=== PATIENT | male | born 1955 | race Caucasian/White ===

== ENCOUNTER 2022-02-22 12:35 | Outpatient (CLI) | payer BC, SELFPAY | END 2022-02-22 12:36 | disposition home or self-care (01) | LOC: LAB 12:37 | PROVIDERS: PCP Physician Assistant; Visit Provider Orthopaedic Surgery Sports Medicine | DX: Z01.818 Encounter for other preprocedural examination (principal) | CPT/HCPCS: 36415; 86850; 86900; 86901 ==

== ENCOUNTER 2022-02-24 07:59 | Day surgery (SDC) | payer BC, SELFPAY ==
[2022-02-24] VITALS (46 sets, daily range): BP systolic 95–127; BP diastolic 55–85; PULSE 47–77; RESP 16; TEMP 35.8–36.9; O2SAT 54–100; BMI 39.1
[2022-02-24] MEDS: CELECOXIB 200 MG CAPSULE PO ×2 (08:30→21:57)
[2022-02-24] MEDS: OXYCODONE (CR) 10 MG TAB.ER.12H PO (08:30)
[2022-02-24] MEDS: ACETAMINOPHEN 500 MG TABLET 1000 MG PO ×3 (08:30→21:58)
[2022-02-24] MEDS: SODIUM CHLORIDE 0.9 % (FLUSH) 10 ML SYRINGE IVF (09:20)
[2022-02-24] MEDS: fentaNYL 100 MCG/2 ML inj IVP (09:22)
[2022-02-24] MEDS: MIDAZOLAM HCL 1 MG/ML inj IVP (09:22)
--- NOTE | 2022-02-24 09:32 | W.PM.NB ---
Nerve Block Nerve Block Time Seen by Provider: 09:31 Date Seen: 02/24/22 Type of block requested by surgeon for post-operative analgesia: BENEDICTO/LFCN Side: right Time out performed: Yes Verification of patient name: Yes Verification of date of : Yes Site marking: site marked Name of person performing procedure: Luis Continuous monitoring Was continuous monitoring of O2 sat, B/P, customer experience strategist, recorded every 15 minutes?: Yes Procedure Checklist: sterile prep, needles and gloves Ultrasound guided. Images saved: Yes Medications given in 5ml increments after negative aspiration: Ropivicaine %: 0.5 mL: 20 Needle gauge: 20 Decadron (mg): 10 Precedex (mcg): 25 Patient tolerated procedure well: Yes Additional comments: Needle noted adjacent to nerve
[2022-02-24] MEDS: LACTATED RINGERS 1000 ML 1,000 ML 100 ML IV (09:37)
--- NOTE | 2022-02-24 09:37 | SUR.PREOP ---
TIME?OUT:?20 PT/RN/MDA?VERIFICATION?OF?SURGICAL?SITE,?PROCEDURE,?AND?CONSENT OBTAINED?PRIOR?TO?INVASIVE?PROCEDURE.
--- NOTE | 2022-02-24 10:38 | CRLHL7_ITS ---
For Patients: As a result of the Cures Act, medical imaging exams and procedure reports are released immediately into your electronic medical record. You may view this report before your referring provider. If you have questions, please contact your health care provider. Indication: Hip replacement surgery Technique: AP hip fluoroscopic image. Fluoroscopy time 48.3 seconds. Findings/Impression: Hardware from a right total hip arthroplasty is in satisfactory position. Dictated by Shalom Pride MD @ 02/24/2022 1:17:27 PM (Electronically Signed)
--- NOTE | 2022-02-24 12:01 | CRLHL7_ITS ---
For Patients: As a result of the Cures Act, medical imaging exams and procedure reports are released immediately into your electronic medical record. You may view this report before your referring provider. If you have questions, please contact your health care provider. Indication: POST OP OVI Technique: AP pelvis and lateral view right hip. Findings/Impression: Hardware from a right total hip arthroplasty is in satisfactory position. Bone alignment is normal. No sign of acute fracture. Postop changes are within normal limits. Degenerative changes at the left hip. Dictated by Shalom Pride MD @ 02/24/2022 2:51:44 PM (Electronically Signed)
--- NOTE | 2022-02-24 13:49 | W.ANESCHARGE ---
Anesthesia Charges Start Date/Time Anesthesia Start Date: 02/24/22 Anesthesia Start Time: 11:04 Stop Date/Time Anesthesia Stop Date: 02/24/22 Anesthesia Stop Time: 13:42 Summary Extremes of Age: Over 72-CPT 10944
--- NOTE | 2022-02-24 14:29 | W.ANESCHARGE ---
Anesthesia Charges Start Date/Time Anesthesia Start Date: 02/24/22 Anesthesia Start Time: 11:04 Stop Date/Time Anesthesia Stop Date: 02/24/22 Anesthesia Stop Time: 13:42 Summary Emergency: No
[2022-02-24] MEDS: HYDROmorphone 0.5 mg/0.5 ml inj IVP (14:44)
[2022-02-24] MEDS: CEFAZOLIN 2 GM in 0.9 % SODIUM CHLORIDE Mini-bag 100 ML IVPB (17:51)
[2022-02-24] MEDS: LACTATED RINGERS 1000 ML 1,000 ML 75 ML IV (17:52)
--- NOTE | 2022-02-24 21:17 | PM.IMCN1 ---
Date of Consult Patient: Jamaal Patient ([place]) Consult date: 02/24/22 Requesting Physician: Orthopedics ([facility]) Primary Care Provider: Rhoda Hare PA-C Consult Narrative Reason for consult: Medical management of hypertension and hyperlipidemia Narrative: Kev Avelar is a 66 year old male who underwent an elective right total hip arthroplasty today for osteoarthritis. He is feeling well. He tells me the block is still working. He was able to use the bathroom with help. He has not yet had flatus. He normally has a BM every other day, but took some doculax last night and had 3 BMs afterward. He recalls both knee surgeries and postoperative recovery going very well. Review of Systems Status of ROS: Reports: 6 or more systems reviewed and unremarkable except as noted in History and below [facility] Medical History (Updated 02/24/22 @ 21:30 by Kyara Fallon MD) Colon polyps Erectile dysfunction Hyperlipidemia Hypertension Surgical History (Updated 02/24/22 @ 21:30 by Kyara Fallon MD) Carpal tunnel syndrome of left wrist H/O colonoscopy H/O colonoscopy with polypectomy S/P total right hip arthroplasty Status post total left knee replacement Status post total right knee replacement Family History (Updated 02/24/22 @ 21:23 by Kyara Fallon MD) Father Throat cancer Social History (Updated 02/24/22 @ 21:43 by Kyara Fallon MD) Narrative: Never smoker. 1 alcoholic drink every six months. 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 5 grandkids. Wishes to be a full code. Smoking Status: Never smoker Do you use any of these nicotine containing products: None How often do you have a drink containing alcohol: monthly or less Alcohol type details: 2 alcoholic drinks per year. How often do you have six or more drinks on one occasion: Never AUDIT-C Alcohol total score: 1 Non-prescribed substance use: denies use Caffeine: No Meds Home Medications and Allergies Home Medications Medication Instructions Recorded Confirmed Type atorvastatin 10 mg tablet (Lipitor) 10 mg PO HS 02/21/22 02/24/22 History celecoxib 200 mg capsule (Celebrex) 200 mg PO HS 02/21/22 02/24/22 History gabapentin 300 mg capsule 300 mg PO TID 02/21/22 02/24/22 History (Neurontin) losartan 50 mg tablet (Cozaar) 50 mg PO HS 02/21/22 02/24/22 History sildenafil 50 mg tablet (Viagra) 50 mg PO DAILY PRN 02/21/22 02/24/22 History Allergies Allergy/AdvReac Type Severity Reaction Status Date / Time No Known Allergies Allergy Verified 02/24/22 08:10 Exam Narrative: Exam Narrative: General: No acute distress. Awake alert oriented x3. Obese. Thick neck. HEENT: Normocephalic atraumatic, pupils equally round and reactive to light and accommodation. Oropharynx clear. Mucous membranes are moist. No cervical lymphadenopathy, thyromegaly or carotid bruits. No JVD. Cardiovascular: Regular rate and rhythm. No murmurs, gallops, or rubs. Chest: No increased work of breathing. Clear to auscultation bilaterally. No crackles or wheezes. Abdomen: Bowel sounds present. Soft, nondistended, nontender. No hepatosplenomegaly or masses. Extremities: Right hip anterior bandage is clean, dry, and intact. No edema, no cyanosis or clubbing. Skin: No jaundice, no pallor, no rashes. Const: Vital Signs, click to edit/add: Vital Signs - 24 hr 02/24/22 08:18 02/24/22 09:22 02/24/22 09:30 Temperature 97.9 F Pulse Rate 57 L 59 L 59 L Pulse Rate [Left P ulse Oximeter] Respiratory Rate 16 16 16 Blood Pressure 127/76 113/76 113/79 Blood Pressure [Ri ght Arm] Pulse Oximetry 98 54 L 99 02/24/22 09:40 02/24/22 10:00 02/24/22 10:43 Temperature Pulse Rate 56 L 52 L 47 L Pulse Rate [Left P ulse Oximeter] Respiratory Rate 16 16 Blood Pressure 98/70 95/65 Blood Pressure [Ri ght Arm] Pulse Oximetry 99 99 100 02/24/22 10:50 02/24/22 10:51 02/24/22 11:18 Temperature Pulse Rate 47 L 48 L 77 Pulse Rate [Left P ulse Oximeter] Respiratory Rate Blood Pressure 98/60 Blood Pressure [Ri ght Arm] Pulse Oximetry 100 99 02/24/22 13:41 02/24/22 13:42 02/24/22 13:44 Temperature Pulse Rate 67 64 64 Pulse Rate [Left P ulse Oximeter] Respiratory Rate Blood Pressure 120/85 Blood Pressure [Ri ght Arm] Pulse Oximetry 97 96 92 02/24/22 13:45 02/24/22 13:46 02/24/22 13:48 Temperature 97.0 F L Pulse Rate 61 60 57 L Pulse Rate [Left P ulse Oximeter] Respiratory Rate Blood Pressure 114/70 Blood Pressure [Ri ght Arm] Pulse Oximetry 95 95 88 02/24/22 13:49 02/24/22 13:50 02/24/22 13:51 Temperature Pulse Rate 57 L 53 L 51 L Pulse Rate [Left P ulse Oximeter] Respiratory Rate Blood Pressure 113/60 Blood Pressure [Ri ght Arm] Pulse Oximetry 94 97 98 02/24/22 13:52 02/24/22 13:55 02/24/22 13:56 Temperature Pulse Rate 51 L 54 L 56 L Pulse Rate [Left P ulse Oximeter] Respiratory Rate Blood Pressure 104/75 Blood Pressure [Ri ght Arm] Pulse Oximetry 99 97 98 02/24/22 13:57 02/24/22 14:02 02/24/22 14:05 Temperature 97.0 F L Pulse Rate 52 L 52 L Pulse Rate [Left P ulse Oximeter] Respiratory Rate 16 Blood Pressure 111/70 104/75 Blood Pressure [Ri ght Arm] Pulse Oximetry 98 98 02/24/22 14:06 02/24/22 14:07 02/24/22 14:09 Temperature Pulse Rate 54 L 55 L Pulse Rate [Left P ulse Oximeter] Respiratory Rate Blood Pressure 113/71 Blood Pressure [Ri ght Arm] Pulse Oximetry 99 99 02/24/22 14:10 02/24/22 14:12 02/24/22 14:13 Temperature Pulse Rate 52 L 53 L 55 L Pulse Rate [Left P ulse Oximeter] Respiratory Rate Blood Pressure 122/65 Blood Pressure [Ri ght Arm] Pulse Oximetry 99 98 94 02/24/22 14:14 02/24/22 14:15 02/24/22 14:30 Temperature 96.5 F L Pulse Rate 54 L 51 L 56 L Pulse Rate [Left P ulse Oximeter] Respiratory Rate 16 Blood Pressure Blood Pressure [Ri ght Arm] 108/72 Pulse Oximetry 98 95 02/24/22 14:45 02/24/22 15:00 02/24/22 15:15 Temperature 96.5 F L 98 F 98 F Pulse Rate Pulse Rate [Left P ulse Oximeter] 54 L 50 L 49 L Respiratory Rate 16 16 16 Blood Pressure Blood Pressure [Ri ght Arm] 119/73 110/68 108/64 Pulse Oximetry 95 98 97 02/24/22 15:30 02/24/22 16:00 02/24/22 16:30 Temperature 98 F 98 F 98.4 F Pulse Rate Pulse Rate [Left P ulse Oximeter] 49 L 54 L 52 L Respiratory Rate 16 16 16 Blood Pressure Blood Pressure [Ri ght Arm] 100/64 114/66 110/72 Pulse Oximetry 95 96 96 02/24/22 17:30 02/24/22 17:49 02/24/22 18:30 Temperature 98 F 98 F 98 F Pulse Rate Pulse Rate [Left P ulse Oximeter] 60 63 Respiratory Rate 16 16 Blood Pressure Blood Pressure [Ri ght Arm] 121/63 115/55 L Pulse Oximetry 97 98 02/24/22 19:05 02/24/22 19:30 02/24/22 20:25 Temperature 98 F 98 F 98 F Pulse Rate Pulse Rate [Left P ulse Oximeter] 63 65 Respiratory Rate 16 16 Blood Pressure Blood Pressure [Ri ght Arm] 113/67 118/68 Pulse Oximetry 97 98 Assessment and Plan Assessment and plan (1) S/P total right hip arthroplasty: Status: Acute Assessment and Plan: Doing well. Pain well controlled. Cares per Ortho. (2) Hypertension: Status: Chronic Assessment and Plan: Hold losartan overnight. (3) Hyperlipidemia: Status: Chronic Assessment and Plan: Continue atorvastatin. Plan At risk for sleep apnea based on body habitus. He does not recall any issues with his 2 knee surgeries. Monitor for nocturnal hypoxia.
[2022-02-24] MEDS: OXYCODONE 5 MG TABLET PO (21:58)
--- NOTE | 2022-02-24 22:58 | PC.NURSE ---
Patient is up to the Bathroom with assist of 1, walker and gait belt. Voided dark lissette urine. Tolerating a regular diet without any nausea. Rating pain at a 1-3/10 in right hip. Oxycodone given x1 with relief.
[2022-02-25 00:30] VITALS: BP 121/70; PULSE 68; RESP 16; TEMP 36.8; O2SAT 95
[2022-02-25] MEDS: CEFAZOLIN 2 GM in 0.9 % SODIUM CHLORIDE Mini-bag 100 ML IVPB ×2 (00:32→08:31)
[2022-02-25] MEDS: OXYCODONE 5 MG TABLET PO ×3 (00:32→08:31)
[2022-02-25 04:00] VITALS: BP 110/68; PULSE 64; RESP 16; TEMP 36.8; O2SAT 96
[2022-02-25] MEDS: ACETAMINOPHEN 500 MG TABLET 1000 MG PO ×2 (04:00→09:38)
--- NOTE | 2022-02-25 05:38 | PC.NURSE ---
SHIFT NOTE -: Pt pleasant and cooperative, A&O. Afebrile. O2 saturation >90% on RA. Pain rated 1-2/10 at rest, PRN Oxycodone and scheduled Tylenol given with relief. Surgical dressing C/D/I, CMS intact, active ice on continuously. Denies N/V, SOB, and CP. Up 1 assist with gait belt and walker and tolerates well.
[2022-02-25 07:14] VITALS: BP 115/60; PULSE 65; RESP 16; TEMP 36.7; O2SAT 97
[2022-02-25 07:25] LABS: Hematocrit 37.5 % (37.0-53.0); Hemoglobin* 12.7 gm/dL (13.5-17.5); Mean Corpuscular HGB Conc 34 gm/dL (32-36); Mean Corpuscular Hemoglobin 30 pg (26-34); Mean Corpuscular Volume 89 fL (80-100); Platelet Count* 217 K/uL (140-440); Red Blood Count 4.23 m/uL (4.30-5.90); White Blood Count* 16.35 K/uL (4.50-11.00)
[2022-02-25 07:30] LABS: Slide Review Reflex No
[2022-02-25] MEDS: CELECOXIB 200 MG CAPSULE PO (08:30)
[2022-02-25] MEDS: RIVAROXABAN 10 MG TABLET PO (08:30)
[2022-02-25] MEDS: SENNOSIDES 1 TAB TABLET 2 TAB PO (08:31)
[2022-02-25] MEDS: GABAPENTIN 300 MG CAPSULE PO (08:31)
--- NOTE | 2022-02-25 10:21 | P.DS_ITS ---
DS: Providers Provider Time Seen by Provider: 08:00 Date Seen: 02/25/22 Primary care physician: Rhoda Hare PA-C Consults: 02/24/22 13:47 Consult to Physician [CONS] Routine Comment: Consulting Provider: Eh Nieves Has provider been notified: Yes 02/24/22 13:47 Consult to Occupational Therapy [CONS] Routine Comment: Reason(s) for OT Consult:: Evaluate and Treat Any Restrictions?:: No Restrictions Consult to Physical Therapy [CONS] Routine Comment: Ambulate in the [place] today Reason(s) for PT Consult:: Evaluate and Treat Any Restrictions?:: No Restrictions Comment: Nursing Activity Consult to Airborne Operations Superintendent [CONS] Routine Comment: Reason for Consult:: Discharge Planning Needs Attending Physician on discharge: Ede Romero MD Date of Discharge: 02/25/22 DS: Diagnosis Discharge Diagnosis (1) S/P total right hip arthroplasty: Status: Acute Problem details: No complications (2) Hypertension: Status: Chronic Problem details: well controlled. Resume blood pressure medication on discharge DS: Summary Hospital Course Hospital Course: 66-year-old male status post right total hip arthroplasty day 1 doing well. He had no operative complications. He is having no significant pain problems. He is otherwise feeling well. Time Spent with Patient Time attestation: Total time spent providing and/or coordinating discharge services: Time spent: Less than 30 minutes Exam Const: Vital Signs, click to edit/add: Vital Signs - 24 hr 02/24/22 10:43 02/24/22 10:50 02/24/22 10:51 Temperature Pulse Rate 47 L 47 L 48 L Pulse Rate [Left P ulse Oximeter] Respiratory Rate Blood Pressure 98/60 Blood Pressure [Ri ght Arm] Pulse Oximetry 100 100 99 02/24/22 11:18 02/24/22 13:41 02/24/22 13:42 Temperature Pulse Rate 77 67 64 Pulse Rate [Left P ulse Oximeter] Respiratory Rate Blood Pressure 120/85 Blood Pressure [Ri ght Arm] Pulse Oximetry 97 96 02/24/22 13:44 02/24/22 13:45 02/24/22 13:46 Temperature 97.0 F L Pulse Rate 64 61 60 Pulse Rate [Left P ulse Oximeter] Respiratory Rate Blood Pressure Blood Pressure [Ri ght Arm] Pulse Oximetry 92 95 95 02/24/22 13:48 02/24/22 13:49 02/24/22 13:50 Temperature Pulse Rate 57 L 57 L 53 L Pulse Rate [Left P ulse Oximeter] Respiratory Rate Blood Pressure 114/70 Blood Pressure [Ri ght Arm] Pulse Oximetry 88 94 97 02/24/22 13:51 02/24/22 13:52 02/24/22 13:55 Temperature Pulse Rate 51 L 51 L 54 L Pulse Rate [Left P ulse Oximeter] Respiratory Rate Blood Pressure 113/60 Blood Pressure [Ri ght Arm] Pulse Oximetry 98 99 97 02/24/22 13:56 02/24/22 13:57 02/24/22 14:02 Temperature Pulse Rate 56 L 52 L Pulse Rate [Left P ulse Oximeter] Respiratory Rate Blood Pressure 104/75 111/70 Blood Pressure [Ri ght Arm] Pulse Oximetry 98 98 02/24/22 14:05 02/24/22 14:06 02/24/22 14:07 Temperature 97.0 F L Pulse Rate 52 L 54 L Pulse Rate [Left P ulse Oximeter] Respiratory Rate 16 Blood Pressure 104/75 113/71 Blood Pressure [Ri ght Arm] Pulse Oximetry 98 99 02/24/22 14:09 02/24/22 14:10 02/24/22 14:12 Temperature Pulse Rate 55 L 52 L 53 L Pulse Rate [Left P ulse Oximeter] Respiratory Rate Blood Pressure 122/65 Blood Pressure [Ri ght Arm] Pulse Oximetry 99 99 98 02/24/22 14:13 02/24/22 14:14 02/24/22 14:15 Temperature Pulse Rate 55 L 54 L 51 L Pulse Rate [Left P ulse Oximeter] Respiratory Rate Blood Pressure Blood Pressure [Ri ght Arm] Pulse Oximetry 94 98 95 02/24/22 14:30 02/24/22 14:45 02/24/22 15:00 Temperature 96.5 F L 96.5 F L 98 F Pulse Rate 56 L Pulse Rate [Left P ulse Oximeter] 54 L 50 L Respiratory Rate 16 16 16 Blood Pressure Blood Pressure [Ri ght Arm] 108/72 119/73 110/68 Pulse Oximetry 95 98 02/24/22 15:15 02/24/22 15:30 02/24/22 16:00 Temperature 98 F 98 F 98 F Pulse Rate Pulse Rate [Left P ulse Oximeter] 49 L 49 L 54 L Respiratory Rate 16 16 16 Blood Pressure Blood Pressure [Ri ght Arm] 108/64 100/64 114/66 Pulse Oximetry 97 95 96 02/24/22 16:30 02/24/22 17:30 02/24/22 17:49 Temperature 98.4 F 98 F 98 F Pulse Rate Pulse Rate [Left P ulse Oximeter] 52 L 60 Respiratory Rate 16 16 Blood Pressure Blood Pressure [Ri ght Arm] 110/72 121/63 Pulse Oximetry 96 97 02/24/22 18:30 02/24/22 19:05 02/24/22 19:30 Temperature 98 F 98 F 98 F Pulse Rate Pulse Rate [Left P ulse Oximeter] 63 63 Respiratory Rate 16 16 Blood Pressure Blood Pressure [Ri ght Arm] 115/55 L 113/67 Pulse Oximetry 98 97 02/24/22 20:25 02/24/22 21:58 02/25/22 00:30 Temperature 98 F 98.2 F 98.2 F Pulse Rate Pulse Rate [Left P ulse Oximeter] 65 68 Respiratory Rate 16 16 Blood Pressure Blood Pressure [Ri ght Arm] 118/68 121/70 Pulse Oximetry 98 95 02/25/22 04:00 02/25/22 07:14 Temperature 98.3 F 98.1 F Pulse Rate Pulse Rate [Left P ulse Oximeter] 64 65 Respiratory Rate 16 16 Blood Pressure Blood Pressure [Ri ght Arm] 110/68 115/60 Pulse Oximetry 96 97 DS: Data Data Completed and Pending Labs on day of discharge: Labs from last 24 hours 02/25/22 06:35 WBC 16.35 H RBC 4.23 L Hgb 12.7 L Hct 37.5 MCV 89 MCH 30 MCHC 34 Plt Count 217 Discharge Plan Discharge Disposition: Home, Self-Care Discharging Surgeon: Ede Romero Follow-Up Appointment: per Ortho Prescriptions: New rivaroxaban 10 mg tablet 10 mg PO DAILY Qty: 4 0RF Rx Instructions: Medication for deep vein clot prevention post surgery. Complete this medication before starting Aspirin. aspirin 81 mg capsule 81 mg PO BID Qty: 50 0RF Rx Instructions: For deep vein clot prevention post surgery. Start this medication after completing Rivaroxaban. Take twice daily. sennosides-docusate sodium [Senna-S] 8.6-50 mg tablet 1 - 4 tab-cap PO BID Qty: 60 0RF Rx Instructions: hold medication if experiencing loose stools. oxycodone 5 mg tablet 2.5 - 10 mg PO Q4-6H MDD 6 PRN (Reason: pain) Qty: 42 0RF Rx Instructions: Take as needed for postop pain: 2.5 mg mild pain, 5 mg moderate, 10 mg severe (DME) Walker- 2 Wheels Misc See Rx Instructions .Route Qty: 1 0RF Rx Instructions: As directed Continued atorvastatin [Lipitor] 10 mg tablet 10 mg PO HS 0RF gabapentin [Neurontin] 300 mg capsule 300 mg PO TID 0RF losartan [Cozaar] 50 mg tablet 50 mg PO HS 0RF sildenafil [Viagra] 50 mg tablet 50 mg PO DAILY PRN0RF Rx Instructions: administer 30 minutes to 4 hours before activity Held celecoxib [Celebrex] 200 mg capsule 200 mg PO HS 0RF Activity Level: Activity as Tolerated, Weight Bearing as Tolerated, Use Cane and Use Walker Discharge Diet: Low Fat/Low Cholesterol Patient Instructions: Surgical Site Infections (DC) Follow-up: Rhoda Hare PA-C [Primary Care Provider] - Discharge Orders: Discharge Order (Routine); Ordered 02/25/22 Ordered By: Eh Nieves
--- NOTE | 2022-02-25 13:16 | PC.NURSE ---
Discharge: Patients vitals stable and WNL. IV removed, discharge instructions given, medications ad follow ups reviewed, questions answered as needed. Dressing dry and intact, pain rated 1-2/10, managed with PRN medication and ice. Tolerating regular diet. Patient discharged @ 1145 via wheelchair, picked up from main entrance, discharged to home.
--- NOTE | 2022-02-25 17:05 | PM.ORPN ---
Subjective Subjective Date Seen: 02/25/22 Principal diagnosis: Status postop day 1 right total hip arthroplasty - anterior approach Interval history: Patient reports doing well. No acute events over night. Pain managed with scheduled /PRN medications and ice. DVT prophylaxis rivaroxaban, bilateral knee high Reuben stockings, and SCDs. Denies fevers, chills, aches, N/V, CP, SOB/ACE, tachycardia, or lightheadedness. Ortho Exam Narrative Exam Narrative: -Patient appears comfortable in recliner; no apparent acute distress -Alert and oriented times 3 -Operative hip mildly swollen; soft tissues supple; no obvious erythema. Ecchymosis minimal. Warmth appropriate -Surgical dressing clean, dry, intact; no obvious drainage, no erythematous streaking peripheral to the bandage -Bilateral calves soft and supple; no significant swelling, edema, tenderness, erythema, discoloration, warmth, or palpable cords -2+ DP/PT pulses, intact dermatomes and myotomes distally (5/5 strength). No numbness about the lateral femoral cutaneous nerve distribution. Const Vital Signs, click to edit/add: Vital Signs - 24 hr 02/24/22 17:30 02/24/22 17:49 02/24/22 18:30 Temperature 98 F 98 F 98 F Pulse Rate [Left Pulse Oximeter] 60 63 Respiratory Rate 16 16 Blood Pressure [Right Arm] 121/63 115/55 L Pulse Oximetry 97 98 02/24/22 19:05 02/24/22 19:30 02/24/22 20:25 Temperature 98 F 98 F 98 F Pulse Rate [Left Pulse Oximeter] 63 65 Respiratory Rate 16 16 Blood Pressure [Right Arm] 113/67 118/68 Pulse Oximetry 97 98 02/24/22 21:58 02/25/22 00:30 02/25/22 04:00 Temperature 98.2 F 98.2 F 98.3 F Pulse Rate [Left Pulse Oximeter] 68 64 Respiratory Rate 16 16 Blood Pressure [Right Arm] 121/70 110/68 Pulse Oximetry 95 96 02/25/22 07:14 Temperature 98.1 F Pulse Rate [Left Pulse Oximeter] 65 Respiratory Rate 16 Blood Pressure [Right Arm] 115/60 Pulse Oximetry 97 Assessment and Plan Assessment and plan (1) S/P total right hip arthroplasty: Problem details: No complications Status: Acute (2) Hypertension: Problem details: well controlled. Resume blood pressure medication on discharge Status: Chronic (3) Acute postoperative anemia due to expected blood loss: Status: Acute Assessment and Plan: Hgb 12.7, asymptomatic (pt denies CP, SOB/ACE, tachycardia, tachypnea, lightheadedness or dizziness). Plan - Complete 23 hour perioperative antibiotics. - PT/OT consult for education and assistance. - Social work consult for discharge planning - Prescribed analgesics as needed - DVT prophylaxis: Rivaroxaban, bilateral knee high Reuben Hose stockings and SCDs - Anticipation is for discharge to home with spouse if the patient remains medically stable, pain is controlled, and they are safe with mobilization.
--- NOTE | 2022-02-25 17:08 | PM.DS1 ---
DS: Providers Provider Date Seen: 02/25/22 Date of admission: Med/Surg recovery 02/24/2022 Primary care physician: Rhoda Hare PA-C Consults: 02/24/22 13:47 Consult to Physician [CONS] Routine Comment: Consulting Provider: Eh Nieves Has provider been notified: Yes 02/24/22 13:47 Consult to Occupational Therapy [CONS] Routine Comment: Reason(s) for OT Consult:: Evaluate and Treat Any Restrictions?:: No Restrictions Consult to Physical Therapy [CONS] Routine Comment: Ambulate in the [place] today Reason(s) for PT Consult:: Evaluate and Treat Any Restrictions?:: No Restrictions Comment: Nursing Activity Consult to J2Ee Application Developer [CONS] Routine Comment: Reason for Consult:: Discharge Planning Needs Attending Physician on discharge: Ede Romero MD Date of Discharge: 02/25/22 DS: Diagnosis Discharge Diagnosis (1) S/P total right hip arthroplasty: Status: Acute Problem details: No complications (2) Hypertension: Status: Chronic Problem details: well controlled. Resume blood pressure medication on discharge (3) Acute postoperative anemia due to expected blood loss: Status: Acute Problem details: No complications; asymptomatic DS: Summary Hospital Course Hospital Course: 66-year-old male status post right total hip arthroplasty day 1 doing well. He had no operative complications. He is having no significant pain problems. He is otherwise feeling well. Status at Discharge Functional status at discharge: uses cane/walker Overall status at discharge: patient is progressing back to baseline Time Spent with Patient Time attestation: Total time spent providing and/or coordinating discharge services: Time spent: Less than 30 minutes Exam Const: Vital Signs, click to edit/add: Vital Signs - 24 hr 02/24/22 17:30 02/24/22 17:49 02/24/22 18:30 Temperature 98 F 98 F 98 F Pulse Rate [Left P ulse Oximeter] 60 63 Respiratory Rate 16 16 Blood Pressure [Ri ght Arm] 121/63 115/55 L Pulse Oximetry 97 98 02/24/22 19:05 02/24/22 19:30 02/24/22 20:25 Temperature 98 F 98 F 98 F Pulse Rate [Left P ulse Oximeter] 63 65 Respiratory Rate 16 16 Blood Pressure [Ri ght Arm] 113/67 118/68 Pulse Oximetry 97 98 02/24/22 21:58 02/25/22 00:30 02/25/22 04:00 Temperature 98.2 F 98.2 F 98.3 F Pulse Rate [Left P ulse Oximeter] 68 64 Respiratory Rate 16 16 Blood Pressure [Ri ght Arm] 121/70 110/68 Pulse Oximetry 95 96 02/25/22 07:14 Temperature 98.1 F Pulse Rate [Left P ulse Oximeter] 65 Respiratory Rate 16 Blood Pressure [Ri ght Arm] 115/60 Pulse Oximetry 97 DS: Data Data Completed and Pending Labs on day of discharge: Labs from last 24 hours 02/25/22 06:35 WBC 16.35 H RBC 4.23 L Hgb 12.7 L Hct 37.5 MCV 89 MCH 30 MCHC 34 Plt Count 217 Discharge Plan Discharge Disposition: Home, Self-Care Discharging Surgeon: Ede Romero Follow-Up Appointment: per Ortho Prescriptions: New rivaroxaban 10 mg tablet 10 mg PO DAILY Qty: 4 0RF Rx Instructions: Medication for deep vein clot prevention post surgery. Complete this medication before starting Aspirin. aspirin 81 mg capsule 81 mg PO BID Qty: 50 0RF Rx Instructions: For deep vein clot prevention post surgery. Start this medication after completing Rivaroxaban. Take twice daily. sennosides-docusate sodium [Senna-S] 8.6-50 mg tablet 1 - 4 tab-cap PO BID Qty: 60 0RF Rx Instructions: hold medication if experiencing loose stools. oxycodone 5 mg tablet 2.5 - 10 mg PO Q4-6H MDD 6 PRN (Reason: pain) Qty: 42 0RF Rx Instructions: Take as needed for postop pain: 2.5 mg mild pain, 5 mg moderate, 10 mg severe (DME) Walker- 2 Wheels Misc See Rx Instructions .Route Qty: 1 0RF Rx Instructions: As directed Continued atorvastatin [Lipitor] 10 mg tablet 10 mg PO HS 0RF gabapentin [Neurontin] 300 mg capsule 300 mg PO TID 0RF losartan [Cozaar] 50 mg tablet 50 mg PO HS 0RF sildenafil [Viagra] 50 mg tablet 50 mg PO DAILY PRN0RF Rx Instructions: administer 30 minutes to 4 hours before activity Held celecoxib [Celebrex] 200 mg capsule 200 mg PO HS 0RF Activity Level: Activity as Tolerated, Weight Bearing as Tolerated, Use Cane and Use Walker Discharge Diet: Low Fat/Low Cholesterol Patient Instructions: Aspirin (By mouth), Laxative, Stimulant (By mouth), Oxycodone, Rapid Release (By mouth), Rivaroxaban (By mouth), Surgical Site Infections (DC), Anterior Hip Replacement (DC) Follow-up: Ede Romero MD [Staff Physician] - 03/06/22 8:30 am (Appointment with Jesus. Schedule surgeon appointment at this visit.) Rhoda Hare PA-C [Primary Care Provider] - (Patient is to call and schedule as needed.) Discharge Orders: Discharge Order (Routine); Ordered 02/25/22 Ordered By: Eh Nieves
--- NOTE | 2022-03-03 10:25 | P.ORPRC_ITS ---
Procedure Note Date of procedure: 03/03/22 Procedure: PREOPERATIVE DIAGNOSIS: 1. Right hip osteoarthritis, severe, primary POSTOPERATIVE DIAGNOSIS: 1. Right hip osteoarthritis, severe, primary PROCEDURE: 1. Right total hip arthroplasty-anterior approach 2. 81543 - intraoperative fluoroscopy up to 1 hour. SURGEON: Ede Romero MD. OBSERVATION ASSISTANT: Jesus Escobar PA-C; ATIYA Hughes - Of note, a skilled graduate assistant athletic trainer was critical for this case to aid in patient positioning, tissue retraction, limb manipulation/positioning, and closure. ANESTHESIA: General endotracheal anesthetic EBL: 300 mL IMPLANTS: DePuy J&J uncemented total hip Critz cup size 56, hole eliminator, +4 neutral liner Actis stem, high offset, size 5 +1.5 mm ceramic 36mm head COMPLICATIONS: None evident INDICATIONS: The patient is a pleasant 66-year-old male who has experienced severe right hip pain and difficulty bearing weight. Workup included x-rays which revealed severe osteoarthrosis in the hip. Given the deformity, the dysfunction, and the pain, as well as the failure of nonoperative management, recommendation was made for surgery. FINDINGS: Moderate effusion upon entering joint. Full-thickness chondral loss superior femoral head and broadly to the acetabulum. Perimeter osteophytes around the acetabulum and femoral head/neck junction. DESCRIPTION OF PROCEDURE: Following a thorough discussion of risks, benefits, and alternatives consent was obtained and the right hip was marked. The patient was brought to the operating room and placed supine on the operating table. Induction of anesthesia was undertaken. 2 g IV Ancef and 1 g tranexamic acid was administered within 1 hr of incision preoperatively. Proper time-out was performed identifying proper patient, site, procedure. The operative extremity was prepped and draped in the appropriate sterile fashion using ChloraPrep after the patient was positioned on the [place] table with head in neutral alignment and all bony prominences well padded. C-arm fluoroscopic imaging was utilized to confirm proper pelvis rotation and position, and to get true AP films of both the contralateral left, and the affected right hip. This is for comparison. A longitudinal incision was made starting approximately 1 cm distal to the ASIS, and 3-4 cm lateral. The incision was extended distally aiming toward the lateral border the patella. Sharp incision through skin and bovie cautery through the subcutaneous tissue allowed identification of the TFL fascia. This was sharply divided, and the fascia bluntly released from the muscle fibers as we dissected medial. Upon coming to the medial border, we were able to retract the TFL laterally, and penetrated the deeper fascia and identify the crossing circumflex vessels. These were ligated/cauterized. The rectus was elevated from the capsule, and retractors placed laterally and medially along the femoral neck to help with visualization of the capsule. We then performed an inverted T capsulotomy. The capsule was tagged for later repair. Retractors were placed inside the capsule. The femoral neck was visualized after releasing medially down to the lesser trochanter, along the saddle laterally, and up onto the acetabulum. The femoral neck cut was made in line with our preoperative templating. The head was removed in a single piece, and sized. We turned our attention to acetabular preparation. Initially, the labrum was resected from around the perimeter, the pulvinar was excised, allowing us to visualize the false wall. We started the reaming with a 43 mm reamer. This was medialized down to the true wall. We then enlarged our reamers sequentially up to one size less than the selected cup size. We trialed at the same size and found it to have an excellent fit. The selected cup was then opened, inserted, and impacted in line with the goal of 40? of abduction, and 20-25? of anteversion. This was confirmed on C-arm fluoroscopic imaging to be in the appropriate/goal position. Once the cup was placed we placed a hole eliminator and a liner consistent with preop planning. Attention was turned to the femoral preparation. The limb was extended, externally rotated, and adducted. The posteromedial capsule was released, as retractors were placed allowing excellent access to the proximal femur. Initially a boxing instructor was followed by canal finder followed by various broaches. We broached sequentially up to the size noted above, found it to have excellent rotational control, and trialing various heads and necks, revealed that appropriate neck offset, and the above noted head size provided the greatest stability, and orthodoxy of length, and offset. C-arm fluoroscopic imaging confirmed position of the stem, as well as leg lengths, which were compared with the pre procedure all fluoroscopic images. Trial implants were removed, the real femoral stem inserted, as was the appropriate head. After reducing, the leg was placed through range of motion and stability was confirmed anterior, posterior, and lateral. A 3 min Betadine soak was then performed, and thorough irrigation with normal saline followed. Closure of the capsule was performed with #1 PDS. Bleeding was confirmed to be controlled at this stage, and the TFL fascia was closed with #0 strata fix. Subcutaneous, and subcuticular closure was performed with 2-0 Vicryl and 4-0 Monocryl, respectively. Dressings were applied, and the patient was awoken from anesthesia and transferred the PACU in stable condition. A skilled graduate assistant athletic trainer was critical for this case to aid in patient positioning, tissue retraction, acetabular and proximal femoral exposure, limb manipulation/positioning, dislocation/relocation, patient safety, and closure. PLAN: 1. Weight bear as tolerated operative extremity. 2. 23 hr perioperative antibiotics. 3. Ice. 4. PT/OT consults for ambulation assistance/mobility education. 5. Social work consult for discharge planning. 6. DVT prophylaxis with at SCDs, Reuben Hose, and Xarelto x5 days followed by aspirin for a total of 1 month..
== END 2022-02-25 12:45 | disposition home or self-care (01) ==
LOC: OR 07:59 → MEDSURG 21:17
PROVIDERS: PCP Physician Assistant; Visit Provider Orthopaedic Surgery Sports Medicine
PROC: (CPT 27130; principal; 2022-02-24 10:30)
DX: M16.11 Unilateral primary osteoarthritis, right hip (principal); D62 Acute posthemorrhagic anemia; I10 Essential (primary) hypertension; E78.5 Hyperlipidemia, unspecified
CPT/HCPCS: 27130; 01214; 36415; 64450; 73501; 76000; 76942; 85027; 97110; 97116; 97161; 97165; 99100; A9270; C1776; J0330; J0690; J1100; J1170; J2250; J2370; J2405; J2704; J2795; J3010; J7120

== ENCOUNTER 2024-06-13 14:17 | Outpatient (CLI) | payer BC, SELFPAY ==
--- NOTE | 2024-06-13 14:30 | MR_ITS ---
[address] [address] Phone:?[phone] Fax:?[phone] Referring Physician Information: dEe Romero M.D. [id number] [facility] [address] Phone:?[phone] Fax:?[phone] Patient:Tan Avelar D.O.B:?1955 Sex:?Male Phone:?[phone] [facility] MRN:?[id number] Exam Date:?06/13/2024 EXAM: MRI of the LEFT SHOULDER, without contrast CLINICAL INFORMATION: Male, 68 years old, with left shoulder pain, possible rotator cuff tear INDICATION: Evaluate for rotator cuff tear PRIOR SURGERY: None reported. PLAIN FILMS: Radiographs 06/07/2024 COMPARISONS: No prior MRIs available. TECHNICAL INFORMATION: Using a 1.5T MR scanner and a localizing surface coil: Coronals: PD, T2FS Sagittals: PDFS, T2 Axials: PD, PDFS SEDATION: None CONTRAST: None FINDINGS: Bones: Proximal humerus: No fracture or marrow edema/pathology. No humeral Hill-Sachs or reverse Hill-Sachs lesion/impaction or contusion. Glenoid: No fracture or marrow edema/pathology. No osseous Bankart lesion. Rotator cuff and muscles/tendons: Supraspinatus: Moderate supraspinatus tendinosis with interstitial delamination. Tiny region of interstitial splitting is seen at the insertional footprint measuring 5 mm (coronal series 5 image 16). Infraspinatus: Mild to moderate infraspinatus tendinosis with tiny region of interstitial splitting at the insertional footprint anteriorly measuring 5 mm (coronal series 5 image 13). Teres minor: No tendinopathy, tear or atrophy. Subscapularis: Moderate subscapularis tendinosis with low-grade undersurface and interstitial tearing of the superior distal tendon, without high-grade or full- thickness tendon tearing. Deltoid: No strain or atrophy. Coracoacromial arch: Acromion morphology: The acromion has type II morphology. No discrete subacromial osseous spur or os acromiale. Acromiohumeral space: The acromiohumeral space is within normal limits. Coracohumeral space: The coracohumeral space is within normal limits. Acromioclavicular joint: Joint: Mild to moderate AC joint arthrosis. There is mild inferior osteophytosis which encroaches upon the underlying supraspinatus. Ligaments: Coracoclavicular ligaments are intact. Bursae: Subacromial-subdeltoid: Trace subacromial bursitis Subcoracoid: No convincing subcoracoid bursal thickening/bursitis. Biceps tendon: The long head biceps tendon is medially positioned in relation to the bicipital groove with contour deformity and flattening. There is low-grade interstitial tearing of the extra-articular tendon. Glenohumeral joint: Effusion/cyst: Trace glenohumeral joint effusion with synovitis. Articular cartilage: Grade 2 chondral thinning of the central humeral head and glenoid articular cartilage. There is mild humeral head/neck osteophytic spurring. Loose bodies: No discrete intra-articular body within the joint. Labrum:?Degeneration, fraying, and tearing is seen throughout the labrum circumferentially. No paralabral ganglion cyst is identified. Inferior glenohumeral ligament/axillary pouch:?Intact. The axillary pouch is normal in thickness and signal. No evidence of adhesive capsulitis or capsular injury. IMPRESSION: 1. Moderate subscapularis tendinosis with low-grade undersurface and interstitial tearing of the superior distal tendon. 2. Moderate supraspinatus, and mild to moderate infraspinatus tendinosis with tiny region of interstitial splitting at the insertional footprint, without high-grade or full-thickness tendon tear. 3. Medial positioning of the long head biceps tendon in relation to the bicipital groove with contour deformity and flattening as well as low-grade interstitial tearing. This may reflect an early/incomplete biceps elba lesion. 4. Circumferential degeneration and tearing of the glenoid labrum. 5. Minimal/mild glenohumeral joint degenerative change. KME Electronically signed on 06/14/2024 5:20:00 PM by Ranjana Jimenez M.D.
== END 2024-06-13 14:18 | disposition home or self-care (01) ==
PROVIDERS: PCP Physician Assistant; Visit Provider Orthopaedic Surgery Sports Medicine
DX: M25.512 Pain in left shoulder (principal); S46.912A Strain of unspecified muscle, fascia and tendon at shoulder and upper arm level, left arm, initial encounter; S46.212A Strain of muscle, fascia and tendon of other parts of biceps, left arm, initial encounter; S43.432A Superior glenoid labrum lesion of left shoulder, initial encounter; M75.102 Unspecified rotator cuff tear or rupture of left shoulder, not specified as traumatic
CPT/HCPCS: 73221

== ENCOUNTER 2024-07-18 08:15 | Day surgery (SDC) | payer BC, SELFPAY ==
[2024-07-18] VITALS (12 sets, daily range): BP systolic 114–172; BP diastolic 62–105; PULSE 63–82; RESP 16; TEMP 36.2–36.8; O2SAT 90–100; BMI 43.0
[2024-07-18] MEDS: SODIUM CHLORIDE 0.9 % (FLUSH) 10 ML SYRINGE IVF (09:08)
[2024-07-18] MEDS: 0.9 % SODIUM CHLORIDE 500 ML 500 ML 100 ML IV (09:09)
[2024-07-18] MEDS: fentaNYL 100 MCG/2 ML inj IVP (09:14)
[2024-07-18] MEDS: MIDAZOLAM HCL 1 MG/ML inj IVP (09:14)
--- NOTE | 2024-07-18 09:24 | SUR.PREOP ---
TIME?OUT:?913 PT/RN/MDA?VERIFICATION?OF?SURGICAL?SITE,?PROCEDURE,?AND?CONSENT OBTAINED?PRIOR?TO?INVASIVE?PROCEDURE.
--- NOTE | 2024-07-18 09:29 | W.PM.H&PU ---
History & Physical Update History & Physical Update H&P Reviewed and patient assessed: No changes noted
--- NOTE | 2024-07-18 09:41 | P.NB_ITS ---
Nerve Block Nerve Block Time Seen by Provider: 09:14 Date Seen: 07/18/24 Type of block requested by surgeon for post-operative analgesia: supraclavicular Side: left Time out performed: Yes Verification of patient name: Yes Verification of date of : Yes Site marking: site marked Name of person performing procedure: Luis Continuous monitoring Was continuous monitoring of O2 sat, B/P, carbon paper coating machine setter, recorded every 15 minutes?: Yes Procedure Checklist: sterile prep, needles and gloves Ultrasound guided. Images saved: Yes Medications given in 5ml increments after negative aspiration: Ropivicaine %: 0.5 mL: 15 Needle gauge: 22 Precedex (mcg): 25 Patient tolerated procedure well: Yes Block Charges Block Charge (with Pro Fee): Brachial Plexus Use of Ultrasound Machine for Block: Yes- US Guidance/pain block
[2024-07-18] MEDS: CEFAZOLIN 2 GM in 0.9 % SODIUM CHLORIDE Mini-bag 100 ML IVPB (09:47)
--- NOTE | 2024-07-18 10:12 | W.ANESCHARGE ---
Anesthesia Charges Start Date/Time Anesthesia Start Date: 07/18/24 Anesthesia Start Time: 09:20 Stop Date/Time Anesthesia Stop Date: 07/18/24 Anesthesia Stop Time: 11:26
[2024-07-18] MEDS: EPINEPHrine 1 MG in SODIUM CHLORIDE IRRIG SOLUTION 3,000 ML 9003 MG IRRIGATION ×2 (10:20→10:50)
--- NOTE | 2024-07-18 11:12 | P.ORPRC_ITS ---
Procedure Note Date of procedure: 07/18/24 Procedure: PREOPERATIVE DIAGNOSES: 1. Left shoulder rotator cuff tear-upper border subscapularis and anterior aspect supraspinatus 2. Left shoulder long head biceps dislocation of the groove. 3. Left shoulder labral tearing. 4. Left shoulder subacromial impingement syndrome. POSTOPERATIVE DIAGNOSES: 1. Left shoulder rotator cuff tear-upper border subscapularis and anterior aspect supraspinatus 2. Left shoulder long head biceps dislocation of the groove. 3. Left shoulder labral tearing. 4. Left shoulder subacromial impingement syndrome. NAME OF OPERATION: 1. Left shoulder arthroscopic rotator cuff repair - upper border subscapularis and high-grade partial-thickness anterior supraspinatus 2. Left shoulder arthroscopic long head of the biceps tenodesis 3. Left shoulder arthroscopic limited glenohumeral debridement 4. Left shoulder arthroscopic bursectomy, subacromial decompression/partial acromioplasty. SURGEON: Ede Romero MD FINGERNAIL TECHNICIAN: Jesus Escobar PA-C. Of note, a skilled apartment assistant manager was critical for this case to aide in patient positioning, suture manipulation, arm positioning, instrument positioning, and closure. ANESTHESIA: General plus preoperative supraclavicular block. EBL: 25 mL IMPLANTS: Arthrex 4.75 mm BioComposite knotless SwiveLock suture anchor (x1); Arthrex 5.5 mm BioComposite SwiveLock suture anchor (x1); Arthrex 2.6 mm k notless FiberTak RC (x1) COMPLICATIONS: None evident INDICATIONS: The patient is a pleasant, 68-year-old male who has experienced left shoulder pain that has been increasing in recent time. Physical exam and imaging were consistent with a rotator cuff tear. Given their findings, as well as the weakness and pain, and inadequate response to nonoperative management, recommendation was made for surgery. FINDINGS: Exam under anesthesia revealed stable shoulder with excellent range of motion. The diagnostic arthroscopy revealed grade 2 chondromalacia anterior humeral head. Grade 4 chondromalacia of superior humeral head with no chondral flaps around it, but rather smooth transition to articular cartilage. Also grade 4 chondromalacia anterior glenoid also with relatively smooth chondral transition. The Subscapularis tendon was torn from its upper border with moderate retraction. This coincided with the long head of biceps being dislocated out of the bicipital groove. The superior rotator cuff tendon was found to be torn and high-grade partial-thickness manner involving the anterior 1.5 cm of the supraspinatus. The labrum was torn near circumferentially. No loose bodies were identified within the pouch or subscapularis recess. PROCEDURE: Following a thorough discussion of risks, benefits, and alternatives, consent was obtained and the left shoulder was marked. The p atient was brought to the operating room and placed supine on the operating table. Induction of anesthesia was completed after preoperative supraclavicular block was administered in preop holding. Appropriate time out was performed identifying proper patient, site, and procedure. 3 g IV Ancef was administered within 1 hour of incision preoperatively. The left upper extremity was prepped and draped in the appropriate sterile fashion using ChloraPrep prep. This was after the patient was positioned in the beach chair with their head in neutral alignment and all bony prominences well padded. The shoulder was insufflated with 20mL of normal saline via an 18g spinal needle from a posterior approach. An 11 blade skin incision allowed a blunt trochar to be inserted and diagnostic arthroscopy to be performed with the findings as noted above. An anterior portal was established with an outside in technique. This allowed the probe to be inserted and confirm the diagnostic arthroscopic findings. The shaver was then inserted and allowed debridement of the anterior, superior, posterior, and even inferior labrum. This also allowed us to debride the biceps stump following biceps tenodesis. The deep surface on the supraspinatus was also debrided intra-articularly prior to moving into the subacromial space where was found the supraspinatus had a high-grade partial-thickness tear and was of poor integrity, worthy of repair. The long head of the biceps was released from the biceps tuberosity and the arthroscopic biceps tenodesis performed with the knotless mechanism of a 4.75 mm BioComposite SwiveLock suture anchor that was also utilized to repair the subscapularis as follows. Following this, the upper border subscapularis was repaired after debriding the lesser tuberosity with the shaver and [place] cautery. Subscapularis was captured in horizontal mattress fashion with a fiber tape suture. The tails were brought to a single anchor in the lesser tuberosity with excellent reapproximation of the subscap tendon and good excursion/tension. Thereafter, the subacromial space was entered. Here, a complete bursectomy and partial acromioplasty/subacromial decompression was performed with a combination of radiofrequency ablator, the shaver, and a 5.5 mm bur. Further inspection of the supraspinatus and infraspinatus rotator cuff was performed. This identified the tear as noted above. The margins of the tear were debrided, and the greater tuberosity was debrided with a combination of the apollo cautery, shaver, and bur on reverse setting. .[ After gentle decorti cation, a single medial row and single lateral anchor were eventually utilized for supraspinatus rotator cuff repair. A probe found that the integrity was poor. Thus, the liberator elevator was utilized to free the remaining supraspinatus anterior fibers from the greater tuberosity to complete the tear. A medial row 2.6 mm FiberTak RC (standard) was placed along the medial footprint. The 2 FiberTape and 2 SutureTape tails were all passed (4 tails) and all brought to a single lateral row anchor with excellent rotator cuff reapproximation to the greater tuberosity. Prior to anchor class b driver removal, the eyelet sutures were tugged on for each anchor and found that the anchor had excellent stability within the bone. The shoulder was placed through range of motion and found to be stable. The rotator cuff was re-probed and found to be stable. Instruments were removed. Excess fluid was drained, closure performed with 4-0 Monocryl and Steri-Strips. Dressings were applied. Sling was applied. The patient was awoken from anesthesia and transferred to the PACU in stable condition. A skilled apartment assistant manager was critical for this case to aid in patient positioning, limb positioning, skill to manipulate arthroscopic instruments and camera, suture management, patient safety, and closure. PLAN: 1. Elbow, forearm, wrist and digit range of motion of operative extremity as tolerated. 2. Encouraged ice. 3. Oxycodone for pain as needed. 4. Sling at all times except for ROM and showering. 5. Follow up with PA visit in 1-2 weeks for wound check. Initiate physical therapy following that visit for passive range of motion. Initiate active assisted range of motion at 3-4 weeks. May do pendulums now.
--- NOTE | 2024-07-18 11:28 | W.ANESCHARGE ---
Anesthesia Charges Start Date/Time Anesthesia Start Date: 07/18/24 Anesthesia Start Time: 09:20 Stop Date/Time Anesthesia Stop Date: 07/18/24 Anesthesia Stop Time: 11:26
== END 2024-07-18 13:24 | disposition home or self-care (01) ==
LOC: OR 08:17
PROVIDERS: PCP Physician Assistant; Visit Provider Orthopaedic Surgery Sports Medicine
PROC: (CPT 29805; principal; 2024-07-18 10:00)
DX: M75.102 Unspecified rotator cuff tear or rupture of left shoulder, not specified as traumatic (principal); M75.22 Bicipital tendinitis, left shoulder; M75.42 Impingement syndrome of left shoulder; M19.012 Primary osteoarthritis, left shoulder; G89.18 Other acute postprocedural pain; Z68.41 Body mass index [BMI] 40.0-44.9, adult; E66.01 Morbid (severe) obesity due to excess calories; E66.813 Obesity, class 3
CPT/HCPCS: 29827; 29828; 29826; 29822; 01630; 64415; 76942; C1713; J0171; J0330; J0690; J1100; J2250; J2371; J2405; J2704; J2710; J2795; J3010; J7030; L3670